=== PATIENT | male | born 1995 | race Caucasian/White ===

== ENCOUNTER 2016-09-24 14:52 | Emergency (ER) | payer OTHER ==
[2016-09-24 15:44] VITALS: BP 144/80; PULSE 102; BMI 25.8
--- NOTE | 2016-09-24 15:48 | PDOC ---
History of Present Illness - General Chief Complaint: Cold Symptoms Stated Complaint: FEVER Time Seen by Provider: 09/24/16 15:47 Past History - Past Medical History Allergies/Adverse Reactions: Allergies Allergy/AdvReac Type Severity Reaction Status Date / Time cefaclor Allergy Verified 09/24/16 15:36 Penicillins Allergy Verified 09/24/16 15:36 Sulfa (Sulfonamide Allergy Verified 09/24/16 15:36 Antibiotics) Other medical history: systemic sarcoidosis, - Psycho/Social/Smoking Cessation Hx Suicidal Ideation: No Smoking History: Never smoked Substance Use Type: None *Physical Exam - Vital Signs Last Vital Signs Temp Pulse Resp BP Pulse Ox 101.2 F H 102 H 18 144/80 99 09/24/16 15:37 09/24/16 15:37 09/24/16 15:37 09/24/16 15:37 09/24/16 15:37
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
[2016-09-24] MEDS ORDERED: ACETAMINOPHEN 500 MG TABLET (FP) PO ONE (16:36)
--- NOTE | 2016-09-24 16:36 | PDOC ---
Attending Attestation - Resident Resident Name: Desiree Gray - ED Attending Attestation I have performed the following: I have examined & evaluated the patient, The case was reviewed & discussed with the resident, I agree w/resident's findings & plan, Exceptions are as noted - HPI HPI: 09/24/16 16:34 Agree with history of present illness as documented in the resident's EMR. - Physicial Exam PE: 09/24/16 16:34 Agree with the physical examination as documented in the patient's EMR. - Medical Decision Making 09/24/16 16:34 21-year-old male with history of systemic sarcoidosison chronic prednisone, depression, hypertension, diabetes who presents to the emergency department with complaints of intermittent diarrhea with blood, and generalized weakness and vomiting with fever over the past 2 days. Differential diagnosis includes but is not limited to: GI bleed, colitis, gastroenteritis, URI, influenza, pneumonia, UTI, dehydration, anemia, electrolyte abnormality, toxic/metabolic derangement. Plan: 1. Labs 2. Urine 3. Chest x-ray 4. Influenza PCR 5. Tylenol as needed for fever 6. Observe and reevaluate
[2016-09-24] MEDS ORDERED: SODIUM CHLORIDE 1,000 ML IV STA (16:37)
[2016-09-24] MEDS ORDERED: ACETAMINOPHEN 325 MG TABLET (FP) ONE (16:44)
[2016-09-24 17:17] LABS: BASOPHIL 0.7 % (0-2.0); EOSINOPHIL 0.1 % (0-4.5); MCH 27.5 pg (25.7-33.7); MCHC 33.1 g/dl (32.0-35.9); MEAN PLT VOLUME 8.5 fl (7.5-11.1); NEUTROPHILS 80.1 % (42.8-82.8); PLATELET COUNT 261 K/MM3 (134-434); RDW 12.3 % (11.9-15.9)
[2016-09-24 17:44] LABS: ALBUMIN 4.3 g/dl (3.4-5.0); ALK PHOS 131 U/L (45-117); ANION GAP 12 (8-16); BILIRUBIN,TOTAL 1.2 mg/dL (0.2-1.0); CALCIUM 9.4 mg/dL (8.5-10.1); CO2 27 mmol/L (21-32); GLUCOSE,RANDOM 80 mg/dL (74-106); SGOT/AST 19 U/L (15-37); SGPT/ALT 34 U/L (12-78); TOT PROT 8.6 g/dl (6.4-8.2)
[2016-09-24] MEDS ORDERED: OSELTAMIVIR PHOSPHATE 75 MG CAPSULE PO ONE (18:01)
[2016-09-24] MEDS ORDERED: OSELTAMIVIR PHOSPHATE 75 MG CAPSULE ONE (18:08)
[2016-09-24 18:17] VITALS: TEMP 98.3
== END 2016-09-24 18:43 | disposition home or self-care (01) ==
LOC: JER 14:52
PROC: 3E0337Z Introduction of Electrolytic and Water Balance Substance into Peripheral Vein, Percutaneous Approach (ICD-10-PCS; principal; 2016-09-24)
DX: J11.1 Influenza due to unidentified influenza virus with other respiratory manifestations (principal); I10 Essential (primary) hypertension; H20.9 Unspecified iridocyclitis; E11.9 Type 2 diabetes mellitus without complications; F32.9 Major depressive disorder, single episode, unspecified; K21.9 Gastro-esophageal reflux disease without esophagitis; D86.9 Sarcoidosis, unspecified
CPT/HCPCS: 36415; 71010-TC; 80053; 82009; 82272; 85025; 87804; 96360; 99282-25

== ENCOUNTER 2019-02-06 20:29 | Emergency (ER) | payer SELFPAY ==
[2019-02-06 20:54] VITALS: BMI 26.6
[2019-02-06] MEDS ORDERED: ACETAMINOPHEN 1000 MG/100 ML VIAL (NON FORMULARY) IVPB ONE (20:58)
[2019-02-06] MEDS ORDERED: ONDANSETRON 4 MG/2 ML VIAL IVPUSH ONE (20:58)
[2019-02-06] MEDS ORDERED: SODIUM CHLORIDE 0.9% 1000 ML INFUS.BAG IV ONE (20:58)
[2019-02-06] MEDS ORDERED: KETOROLAC TROMETHAMINE 30 MG/1 ML VIAL IVPUSH ONE (21:10)
[2019-02-06] MEDS ORDERED: ONDANSETRON 4 MG/2 ML VIAL ONE (21:15)
[2019-02-06] MEDS ORDERED: KETOROLAC TROMETHAMINE 30 MG/1 ML VIAL ONE (21:15)
--- NOTE | 2019-02-06 21:22 | PDOC ---
History of Present Illness - General Chief Complaint: Respiratory Stated Complaint: fever pain Time Seen by Provider: 02/06/19 20:49 History Source: Patient Exam Limitations: No Limitations - History of Present Illness Initial Comments: 02/06/19 21:17 24M with a PMH of PMHx systemic sarcoidosis, HTN, DM Uveitis, depression, GERD ( not on any immunosuppressant medications) who presents to the ER with 2-3 days of fevers, myalgias, polyarthritis, cough, and headache. The patient states that he recently returned from a trip to and immediately began not feeling well. This morning he was unable to get out of bed and decided to present to the ED. In addition to the prior complaints, he also complains of 1 bout of dysuria today and admits to constipation for 2-3 days. Past History - Past Medical History Allergies/Adverse Reactions: Allergies Allergy/AdvReac Type Severity Reaction Status Date / Time cefaclor Allergy Verified 09/24/16 15:36 Penicillins Allergy Verified 09/24/16 15:36 Sulfa (Sulfonamide Allergy Verified 09/24/16 15:36 Antibiotics) Home Medications: Ambulatory Orders Adalimumab [Humira] 40 mg SQ WEEKLY 09/24/16 Albuterol Sulfate [Proventil HFA Inhaler -] 1 - 2 inh PO TID 09/24/16 Folic Acid 1 mg PO DAILY 09/24/16 Methotrexate Sodium [Methotrexate] 15 mg PO WEEKLY 09/24/16 Mometasone/Formoterol [Dulera 100 Mcg/5 Mcg Inhaler] 2 inh IH BID 09/24/16 Montelukast Na [Singulair -] 10 mg PO HS 09/24/16 Naproxen Sodium [Naproxen Sodium ER] 500 mg PO BID 09/24/16 Oseltamivir Phosphate [Tamiflu -] 75 mg PO BID #9 capsule 09/24/16 Oseltamivir Phosphate [Tamiflu -] 75 mg PO BID #9 capsule 09/24/16 Paroxetine HCl [Paxil] 40 mg PO DAILY 09/24/16 Pregabalin [Lyrica -] 75 mg PO DAILY 09/24/16 Ranitidine HCl [Zantac] 300 mg PO DAILY 09/24/16 Tizanidine HCl [Zanaflex] 4 mg PO TID 09/24/16 predniSONE [Deltasone -] 2.5 mg PO DAILY 09/24/16 - Suicide/Smoking/Psychosocial Hx Smoking History: Never smoked Substance Use Type: None Review of Systems - Review of Systems Able to Perform ROS?: Yes Comments:: 02/06/19 21:20 GENERAL/CONSTITUTIONAL: Positive for fevers and chills. No weakness. HEAD, EYES, EARS, NOSE AND THROAT: No sore throat. No change in vision. No ear pain or discharge. CARDIOVASCULAR: No chest pain, palpitations, or lightheadedness. RESPIRATORY: Positive for cough. No wheezing, shortness of breath, or hemoptysis. GASTROINTESTINAL: Positive for nausea, vomiting, and constipation. No diarrhea or abdominal pain. GENITOURINARY: No dysuria, frequency, hematuria, or change in urination. MUSCULOSKELETAL: Positive for myalgias and arthritis. No neck or back pain. SKIN: No rash or lesions. NEUROLOGIC: Positive for headache. No numbness, tingling, weakness, loss of consciousness, or change in strength/sensation. Is the patient limited Palauan proficient: No *Physical Exam - Vital Signs Last Vital Signs Temp Pulse Resp BP Pulse Ox 101.0 F H 89 19 160/88 99 02/06/19 20:50 02/06/19 20:50 02/06/19 20:50 02/06/19 20:50 02/06/19 20:50 - Physical Exam Comments: 02/06/19 21:21 GENERAL: Well developed, well nourished. Awake and alert. Mildly uncomfortable appearing. HEENT: Normocephalic, atraumatic. Hearing grossly normal. Moist mucous membranes. PERRLA, EOMI. No conjunctival pallor. Sclera are non-icteric. NECK: Supple. Full ROM. No JVD. CARDIOVASCULAR: Regular rate and rhythm. No murmurs, rubs, or gallops. PULMONARY: No evidence of respiratory distress. Lungs clear to auscultation bilaterally. No wheezing, rales or rhonchi. ABDOMINAL: Soft. Non-tender. Non-distended. No rebound or guarding. GENITOURINARY: No CVA tenderness bilaterally. MUSCULOSKELETAL: Normal range of motion at all joints. No bony deformities or tenderness. EXTREMITIES: No cyanosis. No clubbing. No edema. No calf tenderness or swelling. SKIN: Warm and dry. Normal capillary refill. No rashes. No jaundice. NEUROLOGICAL: Alert, awake, appropriate. Cranial nerves 2-12 grossly intact. Normal speech. Gait is normal without ataxia. PSYCHIATRIC: Cooperative. Good eye contact. Appropriate mood and affect. ED Treatment Course - LABORATORY CBC & Chemistry Diagram: 02/06/19 21:35 02/06/19 21:35 - RADIOLOGY Radiology Studies Ordered: Category Date Time Status CHEST PA & LAT [RAD] Stat Radiology 02/06/19 20:57 Ordered - Medications Given in the ED: ED Medications Discontinued Medications Generic Name Dose Route Start Last Admin Trade Name Nate PRN Reason Stop Dose Admin Acetaminophen 1,000 mg 02/06/19 20:58 02/06/19 21:09 Ofirmev Injection - IVPB 02/06/19 20:59 Not Given ONCE ONE Medical Decision Making - Medical Decision Making 02/06/19 21:21 24M with PMH of sarcoidosis, not on autoimmune medications, presents to the ED with 2-3 days of fevers, myalgias, cough, and headache concerning for influenza/ viral syndrome vs sarcoidosis flare up. Pending labs and imaging. 02/06/19 23:25 All labs WNL. CXR unremarkable. Pt receiving fluids currently. Will monitor closely. 02/07/19 00:51 Pt's symptoms improved. I have discussed the importance of PCP f/u and f/u with specialists for sarcoidosis. *DC/Admit/Observation/Transfer Diagnosis at time of Disposition: Viral syndrome - Discharge Dispostion Disposition: HOME Condition at time of disposition: Stable Decision to Admit order: No - Referrals - Patient Instructions Printed Discharge Instructions: Common Cold, Sarcoidosis Additional Instructions: Your ER visit is not complete until your follow up with your primary care physician. Please follow up with your primary care physician in 1-2 days. Please return to the ER if you have any signs or symptoms of chest pain, shortness of breath, uncontrollable fever, chills, nausea, vomiting, numbness, tingling, or weakness in any part of your body, changes in vision, or slurred speech. Please take your medications as prescribed. Please return to the ER if symptoms persist, worsen, or new symptoms arise. - Post Discharge Activity
[2019-02-06 21:45] LABS: BASO % 0.4 % (0-2.0); EOS % 0.3 % (0-4.5); HEMATOCRIT 42.4 % (35.4-49); HEMOGLOBIN 14.5 GM/dL (11.7-16.9); LYMPH % 8.5 % (8-40); MCH 29.2 pg (25.7-33.7); MCHC 34.2 g/dl (32.0-35.9); MEAN CELL VOLUME 85.4 fl (80-96); MONO % 7.8 % (3.8-10.2); PLATELET COUNT 186 K/MM3 (134-434); RBC 4.96 M/mm3 (4.00-5.60); RDW 12.8 % (11.9-15.9); WHITE BLOOD COUNT 8.6 K/mm3 (4.0-10.0)
[2019-02-06 22:08] LABS: ALBUMIN 3.8 g/dl (3.4-5.0); BILIRUBIN,TOTAL 1.3 mg/dL (0.2-1); CALCIUM 8.8 mg/dL (8.5-10.1); CREATININE 0.8 mg/dL (0.55-1.3)
[2019-02-06 22:23] LABS: PH,URINE 7.5 (5.0-8.0); URINE APPEARANCE CLEAR; URINE BILIRUBIN NEGATIVE (NEGATIVE); URINE COLOR YELLOW; URINE GLUCOSE (UA) NEGATIVE (NEGATIVE); URINE KETONE NEGATIVE (NEGATIVE); URINE LEUK ESTERASE NEGATIVE (NEGATIVE); URINE NITRITE NEGATIVE (NEGATIVE); URINE PROTEIN NEGATIVE (NEGATIVE)
--- NOTE | 2019-02-06 22:57 | PDOC ---
Documentation entered by Ema Lindo SCRIBE, acting as scribe for Jesus Castañeda MD. Jesus Castañeda MD: This documentation has been prepared by the Guicho figueroa Daisy, SCRIBE, under my direction and personally reviewed by me in its entirety. I confirm that the documentation accurately reflects all work, treatment, procedures, and medical decision making performed by me. Attending Attestation - Resident Resident Name: Manuel Chaparro - ED Attending Attestation I have performed the following: I have examined & evaluated the patient, The case was reviewed & discussed with the resident, I agree w/resident's findings & plan, Exceptions are as noted - HPI HPI: 02/06/19 21:02 The patient is a 24YOM with a PMH of systemic sarcoidosis (not currently on any meds), HTN, and DM who presents to the ER for fever, muscle aches, and cough. Denies CP/SOB. Denies abdominal pain/N/V/D. Denies SNYDER/neck stiffness. Patient reports he recently came back from [facility]. Denies any sick contacts. Allergies: penicillins, sulfa - Physicial Exam PE: 02/06/19 22:53 "GENERAL: Awake, alert, and fully oriented, in no acute distress. HEAD: No signs of trauma EYES: PERRLA, EOMI, sclera anicteric, conjunctiva clear ENT: Auricles normal inspection, hearing grossly normal, nares patent, oropharynx clear without exudates. Moist mucosa NECK: Nontender, no stepoffs, Normal ROM, supple, no lymphadenopathy, JVD, or masses LUNGS: Breath sounds equal, clear to auscultation bilaterally. No wheezes, and no crackles HEART: Regular rate and rhythm, normal S1 and S2, no murmurs, rubs or gallops ABDOMEN: Soft, nontender, normoactive bowel sounds. No guarding, no rebound. No masses EXTREMITIES: Normal range of motion, no edema. No clubbing or cyanosis. No cords, erythema, or tenderness NEUROLOGICAL: Cranial nerves II through XII intact. 5/5 strength and sensation in all extremities, Normal speech, normal gait, normal cerebellar function SKIN: Warm, Dry, normal turgor, no rashes or lesions noted. - Medical Decision Making 02/06/19 22:53 24 M with bodyaches, fevers, cough. Suspect viral illness vs influenza. Will r/ o PNA. Pt has h/o sarcoidosis but this is not how his flares typically present. Pt not currently on any meds or immunosuppression. - Labs, UA - CXR - Flu swab - Toradol 02/06/19 23:01 Labs wnl CXR clear on my read Flu swab negative Pt reassessed - symptoms improved with toradol and fluids Pt is well appearing, with normal vitals. Clinically stable for DC at this time. I discussed the physical exam findings, ancillary test results and final diagnoses with the patient. I answered all of the patient's questions. The patient was satisfied with the care received and felt comfortable with the discharge plan and treatment plan. The patient agrees to follow up with the primary care physician within 24-72 hours.
[2019-02-07 01:09] VITALS: BP 139/63; PULSE 68; TEMP 99.9
== END 2019-02-07 02:13 | disposition home or self-care (01) ==
LOC: JER 20:29
PROC: 3E033GC Introduction of Other Therapeutic Substance into Peripheral Vein, Percutaneous Approach (ICD-10-PCS; principal; 2019-02-06)
PROC: 3E033NZ Introduction of Analgesics, Hypnotics, Sedatives into Peripheral Vein, Percutaneous Approach (ICD-10-PCS; 2019-02-06)
PROC: 3E0333Z Introduction of Anti-inflammatory into Peripheral Vein, Percutaneous Approach (ICD-10-PCS; 2019-02-06)
DX: B34.9 Viral infection, unspecified (principal); I10 Essential (primary) hypertension; E10.9 Type 1 diabetes mellitus without complications; D86.9 Sarcoidosis, unspecified; K21.9 Gastro-esophageal reflux disease without esophagitis
CPT/HCPCS: 36415; 71046-TC-FY; 80053; 81003; 85025; 87491; 87591; 87804; 99282-25; J7030